=== PATIENT | male | born 1995 | race Caucasian/White ===

== ENCOUNTER 2018-08-20 18:01 | Emergency (ER) | payer SELFPAY ==
[2018-08-20] MEDS ORDERED: NORMAL SALINE 1000 ML 1,000 ML IV ONE (21:49)
[2018-08-20] MEDS ORDERED: ONDANSETRON HCL INJ/PF 4 MG/2 ML SDV IV ONE (21:49)
--- NOTE | 2018-08-20 21:52 | ER Document Report ---
ED Medical Screen (RME) - General Chief Complaint: Nausea/Vomiting Stated Complaint: ABDOMINAL PAIN Time Seen by Provider: 08/20/18 21:48 Notes: Patient is a 23-year-old diabetic male presents to the emergency department complaining of generalized nausea and vomiting for the last 2 days and an increase in his blood sugar levels. Patient states his sugar was "300 something" around 1500 hrs. this afternoon when he took 10 units of NovoLog. Patient states he is continued with nausea, vomiting, diarrhea and generalized abdominal pain. Patient states he does have a history of pancreatitis. Past medical history: Insulin-dependent diabetes, pancreatitis, GERD, neuropathy Medications: Lantus, NovoLog, omeprazole, Neurontin Allergies: None GENERAL: Alert, interacts well. Actively dry heaving, pale, diaphoretic, tachycardic. ABDOMEN: Soft, non-tender. Non-distended. Bowel sounds present in all 4 quadrants. I have greeted and performed a rapid initial assessment of this patient. A comprehensive ED assessment and evaluation of the patient, analysis of test results and completion of the medical decision making process will be conducted by additional ED providers. TRAVEL OUTSIDE OF THE [place] IN LAST 30 DAYS: No - Related Data Allergies/Adverse Reactions: No Known Allergies Allergy (Unverified 08/20/18 18:04) Physical Exam - Vital signs Vitals: Temp Pulse Resp BP Pulse Ox 98.3 F 130 H 18 130/98 H 96 08/20/18 18:12 08/20/18 18:12 08/20/18 18:12 08/20/18 18:12 08/20/18 18:12 Course - Vital Signs Vital signs: Temp Pulse Resp BP Pulse Ox 98.3 F 130 H 18 130/98 H 96 08/20/18 18:12 08/20/18 18:12 08/20/18 18:12 08/20/18 18:12 08/20/18 18:12 - Laboratory Laboratory results interpreted by me: 08/20/18 08/20/18 19:20 21:01 POC Glucose 250 H 246 H
[2018-08-20 22:11] LABS: VENOUS BLOOD BASE EXCESS 5.5 mmol/L; VENOUS BLOOD HCO3 28.2 mmol/L (20-32); VENOUS BLOOD PCO2 35.6 mmHg (35-63); VENOUS BLOOD PH 7.52 (7.30-7.42)
[2018-08-20 22:13] LABS: ABSOLUTE BASOPHILS # (AUTO) 0.1 10^3/uL (0.0-0.2); ABSOLUTE LYMPHOCYTES (AUTO) 1.3 10^3/uL (0.5-4.7); ABSOLUTE MONOCYTES (AUTO) 0.7 10^3/uL (0.1-1.4); ABSOLUTE NEUT (AUTO) 14.7 10^3/uL (1.7-8.2); BASOPHILS % (AUTO) 0.4 % (0-2); HEMOGLOBIN 16.1 g/dL (13.5-17.0); MEAN CORPUSCULAR HEMOGLOBIN 29.7 pg (27.0-33.4); MEAN CORPUSCULAR HGB CONC 33.5 g/dL (32.0-36.0); MEAN CORPUSCULAR VOLUME 89 fl (80-97); MONOCYTES % (AUTO) 4.1 % (3-13); PLATELET COUNT 342 10^3/uL (150-450); RED BLOOD COUNT 5.41 10^6/uL (4.35-5.55); RED CELL DISTRIBUTION WIDTH 13.5 % (11.5-14.0); SEGMENTED NEUTROPHILS % (AUTO) 87.5 % (42-78); TOTAL CELLS COUNTED % (AUTO) 100 %; WHITE BLOOD COUNT 16.8 10^3/uL (4.0-10.5)
[2018-08-20 22:46] LABS: ALANINE AMINOTRANSFERASE 21 U/L (21-72); ALBUMIN 5.1 g/dL (3.5-5.0); ALKALINE PHOSPHATASE 140 U/L (38-126); ANION GAP 16 (5-19); ASPARTATE AMINO TRANSFERASE 21 U/L (17-59); BILIRUBIN,DIRECT 0.5 mg/dL (0.0-0.4); BILIRUBIN,TOTAL 1.6 mg/dL (0.2-1.3); BLOOD UREA NITROGEN 26 mg/dL (7-20); CALCIUM 10.3 mg/dL (8.4-10.2); CARBON DIOXIDE 30 mmol/L (22-30); CHLORIDE 95 mmol/L (98-107); GLUCOSE 306 mg/dL (75-110); SODIUM 140.6 mmol/L (137-145); TOTAL PROTEIN 8.4 g/dL (6.3-8.2)
[2018-08-20] MEDS ORDERED: MORPHINE SULFATE 10 MG/ML INJ IV ONE (22:57)
[2018-08-20] MEDS ORDERED: RINGERS SOLUTION,LACTATED 1,000 ML IV ONE (22:57)
[2018-08-20] MEDS ORDERED: PROMETHAZINE HCL INJ 25 MG/1 ML VIAL IM ONE (22:57)
[2018-08-21] MEDS ORDERED: HALOPERIDOL LACTATE INJ 5 MG/1 ML VIAL IM ONE (01:02)
--- NOTE | 2018-08-21 01:26 | RADIOLOGY REPORT (SQ) ---
CT ABDOMEN PELVIS WITH IV CONTRAST HISTORY: Abdominal pain and vomiting. COMPARISON: None. TECHNIQUE: CT scan of the abdomen and pelvis with IV contrast. This exam was performed according to our departmental dose-optimization program, which includes automated exposure control, adjustment of the mA and/or kV according to patient size and/or use of iterative reconstruction technique. Motion artifact limits study. FINDINGS: The lung bases are clear. No pleural or pericardial effusions. There is wall thickening of the distal thoracic esophagus. Liver is enlarged measuring 22 cm. The spleen and pancreas are unremarkable. No gallstones by CT criteria. No adrenal masses are identified. The kidneys are symmetric without hydronephrosis. No ureteral or bladder stones are seen. The pelvic organs are unremarkable. No small bowel obstruction. The appendix is unremarkable. The abdominal aorta is normal caliber. There are no suspicious osseous lesions identified. IMPRESSION: 1. Wall thickening of the distal thoracic esophagus which may represent underdistention versus inflammation/infection. 2. Normal appendix.
[2018-08-21] MEDS ORDERED: RINGERS SOLUTION,LACTATED 1,000 ML IV ONE (02:49)
[2018-08-21] MEDS ORDERED: INSULIN REG, HUMAN 100 UNIT/ML 3 ML VIAL (PYX) SUBCUT ONE ×2 (03:00→04:52)
--- NOTE | 2018-08-21 03:01 | ER Document Report ---
ED General - General Chief Complaint: Nausea/Vomiting Stated Complaint: ABDOMINAL PAIN Time Seen by Provider: 08/20/18 21:48 Notes: Patient is a 23-year-old male presents with complaint of intractable vomiting for a few days. She also has some intermittent crampy abdominal pain. No fevers. No diarrhea. He is a type I diabetic. He says he has been taking his insulin. Blood sugars have been fluctuating. He denies marijuana use; however, the room smells very strongly of marijuana. He does have a history of DKA. He is unsure if he could be in DKA at this time. TRAVEL OUTSIDE OF THE [place] IN LAST 30 DAYS: No - Related Data Allergies/Adverse Reactions: No Known Allergies Allergy (Verified 08/20/18 23:02) Past Medical History - Social History Smoking Status: Current Every Day Smoker Frequency of alcohol use: None Drug Abuse: None Family History: Reviewed & Not Pertinent Patient has suicidal ideation: No Patient has homicidal ideation: No Endocrine Medical History: Reports: Hx Diabetes Mellitus Type 1 Renal/ Medical History: Denies: Hx Peritoneal Dialysis Review of Systems - Review of Systems Notes: My Normal Review Basic REVIEW OF SYSTEMS: CONSTITUTIONAL : Denies fever, chills, or sweats. Denies recent illness. EENT: Denies eye, ear, throat, or mouth pain or symptoms. Denies nasal or sinus congestion. CARDIOVASCULAR: Denies chest pain. RESPIRATORY: Denies cough, cold, or chest congestion. Denies shortness of breath, difficulty breathing, or wheezing. GASTROINTESTINAL: Abdominal pain. Intractable vomiting. No blood in emesis. GENITOURINARY: Denies difficulty urinating, painful urination, burning, frequency, or blood in urine. MUSCULOSKELETAL: Denies neck or back pain or joint pain or swelling. SKIN: Denies rash or skin lesions. NEUROLOGICAL: Denies altered mental status or loss of consciousness. Denies headache. Denies weakness or paralysis or loss of use of either side. Denies problems with gait or speech. Denies sensory or motor loss. ALL OTHER SYSTEMS REVIEWED AND NEGATIVE. Physical Exam - Vital signs Vitals: Temp Pulse Resp BP Pulse Ox 98.3 F 130 H 18 130/98 H 96 08/20/18 18:12 08/20/18 18:12 08/20/18 18:12 08/20/18 18:12 08/20/18 18:12 - Notes Notes: General Appearance: Well nourished, alert, cooperative, no acute distress, no obvious discomfort. Vitals: reviewed, See vital signs table. Head: no swelling or tenderness to the head Eyes: PERRL, EOMI, Conjuctiva clear Mouth: No decreasd moisture Lungs: No wheezing, No rales, No rhonci, No accessory muscle use, good air exchange bilaterally. Heart: Tachycardic rate, Regular rythm, No murmur, no rub Abdomen: Normal BS, soft, No rigidity, some epigastric tenderness to palpation., No guarding, no rebound, no abdominal masses, no organomegaly Extremities: strength 5/5 in all extremities, good pulses in all extremities, no swelling or tenderness in the extremities, no edema. Skin: warm, dry, appropriate color, no rash Neuro: speech clear, oriented x 3, normal affect, responds appropriately to questions. Course - Re-evaluation Re-evalutation: 08/21/18 03:00 Patient is feeling much improved after the Haldol. He is no longer vomiting. Still a bit tachycardic therefore I will give another liter of fluids. Blood sugar on repeat Accu-Chek is increasing therefore I will give him some insulin. 08/21/18 03:01 08/21/18 04:01 Patient continues to feel improved. Heart rate is currently 105. Is much improved from where it was. Still has not urinated. I do notice on his bladder to see if there is any evidence of urine in his bladder. I will have an repeat BMP obtained to make sure that the patient is not becoming acidotic as he is a diabetic. Patient has received insulin. 08/21/18 04:05 I went to ultrasound his bladder the patient says he feels he has to pee now and took the urine cup and went to bathroom to go urinate. Patient is able to stand and walk with any difficulties. Patient looks well. 08/21/18 05:20 Patient's laboratory evaluation is unremarkable. He still has some hyperglycemia which will give him some insulin for. I did repeat a chemistry panel make sure he is not becoming acidotic and is not. He has had no further vomiting. He looks and feels much improved. 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 Patient is understanding of this and agrees to try to hold on marijuana use. I encouraged him return to ER immediately if he has worsening blood sugars, recurrent vomiting, fevers, or feels unwell. Patient has no pain in his abdomen at this time looks well and is no longer vomiting. Patient agrees with plan and will be discharged home. Dictation of this chart was performed using voice recognition software; therefore, there may be some unintended grammatical errors. - Vital Signs Vital signs: Temp Pulse Resp BP Pulse Ox 98.5 F 110 H 16 140/91 H 97 08/21/18 05:07 08/21/18 05:07 08/21/18 05:07 08/21/18 04:01 08/21/18 04:01 - Laboratory Result Diagrams: 08/20/18 22:00 08/21/18 04:05 Laboratory results interpreted by me: 08/20/18 08/20/18 08/20/18 19:20 21:01 22:00 WBC 16.8 H Seg Neutrophils % 87.5 H Lymphocytes % 8.0 L Absolute Neutrophils 14.7 H VBG pH Chloride BUN Glucose POC Glucose 250 H 246 H Calcium Total Bilirubin Direct Bilirubin Alkaline Phosphatase Total Protein Albumin Urine Protein Urine Glucose (UA) Urine Ketones 08/20/18 08/20/18 08/21/18 22:00 22:00 02:53 WBC Seg Neutrophils % Lymphocytes % Absolute Neutrophils VBG pH 7.52 H Chloride 95 L BUN 26 H Glucose 306 H POC Glucose 321 H Calcium 10.3 H Total Bilirubin 1.6 H Direct Bilirubin 0.5 H Alkaline Phosphatase 140 H Total Protein 8.4 H Albumin 5.1 H Urine Protein Urine Glucose (UA) Urine Ketones 08/21/18 08/21/18 04:05 04:05 WBC Seg Neutrophils % Lymphocytes % Absolute Neutrophils VBG pH Chloride BUN 21 H Glucose 295 H POC Glucose Calcium Total Bilirubin Direct Bilirubin Alkaline Phosphatase Total Protein Albumin Urine Protein >=500 H Urine Glucose (UA) >=500 H Urine Ketones 80 H Discharge - Discharge Clinical Impression: Hyperglycemia, Vomiting Condition: Good Disposition: HOME, SELF-CARE Additional Instructions: Please keep a close eye on your blood sugar and continue to use your insulin to maintain control. Please drink non-caffeinated liquids and stay well-hydrated over the next several days. Please return to ER immediately if you have intractable vomiting, pain, fevers, or if your blood sugar continues to increase despite taking your insulin. Please avoid marijuana use as sometimes this can cause a cycle of intractable vomiting which will make you very sick. Please follow-up with your doctor on Saturday for reevaluation. Prescriptions: Promethazine HCl [Phenergan 25 mg Tablet] 1 tab PO Q6H PRN #15 tablet PRN Reason: Forms: Return to Work
[2018-08-21 04:23] LABS: APPEARANCE,URINE CLEAR; BILIRUBIN,URINE NEGATIVE (NEGATIVE); COLOR,URINE YELLOW; GLUCOSE, URINE >=500 mg/dL (NEGATIVE); KETONES,URINE 80 mg/dL (NEGATIVE); LEUKOCYTE ESTERASE,URINE NEGATIVE (NEGATIVE); NITRITE,URINE NEGATIVE (NEGATIVE); PROTEIN,URINE >=500 mg/dL (NEGATIVE); URINE SPECIFIC GRAVITY 1.051; UROBILINOGEN,URINE NEGATIVE mg/dL (<2.0)
[2018-08-21 04:36] LABS: ANION GAP 12 (5-19); BLOOD UREA NITROGEN 21 mg/dL (7-20); CALCIUM 9.4 mg/dL (8.4-10.2); CARBON DIOXIDE 28 mmol/L (22-30); CHLORIDE 101 mmol/L (98-107); GLUCOSE 295 mg/dL (75-110); POTASSIUM 4.5 mmol/L (3.6-5.0); SODIUM 141.4 mmol/L (137-145)
[2018-08-21] MEDS ORDERED: PROMETHAZINE HCL 25 MG SUPP (4 SUPP/ER DISP) PR ONE (04:52)
[2018-08-21 07:53] VITALS: BP 156/103
== END 2018-08-21 07:57 | disposition home or self-care (01) ==
LOC: ER 18:01
DX: R11.2 Nausea with vomiting, unspecified (principal); E10.65 Type 1 diabetes mellitus with hyperglycemia; R10.9 Unspecified abdominal pain; F17.200 Nicotine dependence, unspecified, uncomplicated; R00.0 Tachycardia, unspecified; R10.816 Epigastric abdominal tenderness
CPT/HCPCS: 99285; 96372; 96361; 96374; 96375; 36415; 82962; 83690; 85025; 80048; 80053; 81001; 82803; 74177; J1630; J3490; J2270; J1815; J2550; J2405; J7030; J7120 ×2